=== PATIENT | female | born 1980 | race Caucasian/White ===

== ENCOUNTER 2019-10-25 10:37 | Emergency (ER) | payer SELFPAY ==
[~2019-10-25] VITALS: Ht 155 cm; Wt 60.0 kg
--- NOTE | 2019-10-25 10:40 | ED General ---
General Stated Complaint: SKIN FEELS TINGLY Source of Information: Patient History of Present Illness Date Seen by Provider: October 25, 2019 Time Seen by Provider: 10:39 Initial Comments Patient is a 38-year-old female who comes to the emergency department today complaining of some skin changes. She found a tick on her torso 2 days earlier. She states she pulled it off without difficulty. She then developed some numbness and tingling over the entirety of her body of the skin. She only feels a swelling somebody else is touching her. When there is no contact, her skin feels normal. Her symptoms do not occur in any dermatomal distribution. She has not had a fever or chills. No nausea or vomiting. She does have a history of asthma and bronchitis but she does not report any worsening of the symptoms. No recent viral symptoms. Allergies and Home Medications Allergies Coded Allergies: acetaminophen (Verified Allergy, Unknown, 10/25/19) doxycycline (Verified Allergy, Unknown, 10/25/19) tachycardia, SOA hydrocodone (Verified Allergy, Unknown, 10/25/19) oxycodone (Verified Allergy, Unknown, 10/25/19) povidone-iodine (Verified Allergy, Unknown, 10/25/19) soap (Verified Allergy, Unknown, 10/25/19) Home Medications Albuterol Sulfate 1 Puff Puff, 2 PUFF IH Q4H, (Reported) 1 PUFF = 90 MCG Erythromycin Base 500 Mg Tablet.dr, 500 MG PO QID Prescribed by: ORALIA RODRIGEZ on 10/25/19 1056 Patient Home Medication List Home Medication List Reviewed: Yes Review of Systems Review of Systems Constitutional: no symptoms reported EENTM: no symptoms reported Respiratory: no symptoms reported Cardiovascular: no symptoms reported Musculoskeletal: no symptoms reported Skin: see HPI All Other Systems Reviewed Negative Unless Noted: Yes Physical Exam Vital Signs Vital Signs - First Documented 10/25/19 10:45 Temp 36.2 Pulse 100 Resp 18 B/P (MAP) 132/90 (104) Pulse Ox 96 Capillary Refill : Height, Weight, BMI Height: '" Weight: lbs. oz. kg; BMI Method: General Appearance: No Apparent Distress, WD/WN Neck: Full Range of Motion Respiratory: Lungs Clear, Normal Breath Sounds Cardiovascular: Regular Rate, Rhythm Neurologic/Psychiatric: Alert, Oriented x3 Skin: Other (patient has insect bite along the lateral aspect of the torso over the rib cage. There is a 2 cm area of erythema with central clearing around the actual bite. Does not appear to be acutely cellulitic.) Progress/Results/Core Measures Suspected Sepsis SIRS Temperature: Pulse: Respiratory Rate: Blood Pressure / Mean: Results/Orders Vital Signs/I&O 10/25/19 10:45 Temp 36.2 Pulse 100 Resp 18 B/P (MAP) 132/90 (104) Pulse Ox 96 Capillary Refill : Progress Note : Time: 10:51 Progress Note Patient is seen briefly in the emergency department for a tick bite. She does not have a fever. Her wound does not appear acutely infected. Based on her history of present illness, it does not sound the tick was likely attached for more than 24 hours. Her presenting symptom is vague and only positive for sensitivity of her skin everywhere. Uncertain cause for the symptoms unless she is possibly having some minor immune reaction to tick bite. Her physical exam is otherwise normal. She is allergic to doxycycline. Possibility of tick borne illness is extremely low. Will give patient erythromycin and recommend that begin taking it if she develops any worsening symptoms or fevers. She is also recommended to follow up with primary care doctor for any new or worsening symptoms or the ER. She is overall nontoxic and in no distress. Physical exam of her skin is normal other than documented above. Departure Impression Primary Impression: Tick bite Disposition: 01 HOME, SELF-CARE Condition: Stable Departure-Patient Inst. Scripts Erythromycin Base (Erythromycin) 500 Mg Tablet. 500 MG PO QID for 10 Days, TAB Prov: ORALIA RODRIGEZ DO 10/25/19 ORALIA RODRIGEZ DO October 25, 2019 10:40
[2019-10-25 10:45] VITALS: BP 132/90
[2019-10-25] MEDS ORDERED: DOXY100T2 PO (10:47)
[2019-10-25] MEDS ORDERED: RT-ALBUINH IH (10:51)
[2019-10-25] MEDS ORDERED: IPRA4AER IH (10:51)
[2019-10-25] MEDS ORDERED: ERYT-118 PO (10:56)
== END 2019-10-25 11:10 | disposition home or self-care (01) ==
LOC: EDBD → ER FS 10:40 → MERGE 10:40 → ER FS 11:10
DX: S20.369A Insect bite (nonvenomous) of unspecified front wall of thorax, initial encounter (principal); Z88.6 Allergy status to analgesic agent; Z88.5 Allergy status to narcotic agent; Z88.8 Allergy status to other drugs, medicaments and biological substances; Z88.1 Allergy status to other antibiotic agents; W57.XXXA Bitten or stung by nonvenomous insect and other nonvenomous arthropods, initial encounter
CPT/HCPCS: 99281

== ENCOUNTER 2021-03-21 20:56 | Emergency (ER) | payer SELFPAY ==
[~2021-03-21] VITALS: Ht 154.9 cm; Wt 61.2 kg
[~2021-03-21 20:56] MED LIST: DOXY100T2 PO; ERYT-118 PO; IPRA4AER IH; RT-ALBUINH IH
[2021-03-21] MEDS ORDERED: NS IV 1000 ML 1,000 ML IV SCH (21:45)
[2021-03-21] MEDS ORDERED: RT-ALBUTEROL HFA 8.5 GM INHALER IH STA (21:48)
--- NOTE | 2021-03-21 21:48 | ED GU-Female ---
General Chief Complaint: - Reproductive Stated Complaint: UNABLE TO URINATE Nursing Triage Note: started last having frequency, painful urination and less volume with urination. verbalizes has felt feverish. Source: patient Exam Limitations: no limitations History of Present Illness Date Seen by Provider: Mar 21, 2021 Time Seen by Provider: 21:35 Initial Comments Patient is a 40-year-old female who presents to the emergency department with a chief complaint of inability to urinate. Patient states that her symptoms started a week ago on Saturday. She states she has been "dribbling". She has dysuria and a sense of urgency. Denies any abnormal vaginal discharge. Last bowel movement was yesterday and she describes it as normal. She complains of subjective fevers and chills. She is had nausea and vomiting. She has left- sided back pain. States that she has had similar symptoms in the past with urinary tract infections. Last menstrual cycle was a month ago. She has a history of a tubal ligation. All other review of systems reviewed and negative except as stated. Timing/Duration: week, getting worse Severity/Quality: severe, burning Location: suprapubic Radiation: back Activities at Onset: none Modifying Factors: Improves With Other (Taking "Uristat") Associated Symptoms: abdominal pain, fever/chills (Subjective), lower back pain, nausea/vomiting Allergies and Home Medications Allergies Coded Allergies: acetaminophen (Verified Allergy, Unknown, 10/26/19) doxycycline (Verified Allergy, Unknown, 10/26/19) tachycardia, SOA hydrocodone (Verified Allergy, Unknown, 10/26/19) oxycodone (Verified Allergy, Unknown, 10/26/19) povidone-iodine (Verified Allergy, Unknown, 10/26/19) soap (Verified Allergy, Unknown, 10/26/19) Patient Home Medication List Home Medication List Reviewed: Yes Albuterol Sulfate (Proair Hfa) 1 Puff Puff, 2 PUFF IH Q4H, (Reported) Entered as Reported by: CARMEN RONDON on 10/25/19 1051 Albuterol/Ipratropium (Combivent Respimat Inhal [place]) 4 Gm Aero, 2 PUFF IH, (Reported) Entered as Reported by: CARMEN RONDON on 10/25/19 1051 Erythromycin Base (Erythromycin) 500 Mg Tablet.dr 500 MG PO QID Prescribed by: ORALIA RODRIGEZ on 10/25/19 1056 Review of Systems Review of Systems Constitutional: see HPI EENTM: no symptoms reported Respiratory: short of breath, wheezing Cardiovascular: no symptoms reported Gastrointestinal: abdominal pain Genitourinary: burning, urgency, other (Decreased urinary frequency) Musculoskeletal: back pain Skin: no symptoms reported Psychiatric/Neurological: No Symptoms Reported All Other Systemes Reviewed Negative Unless Noted: Yes Past Cbzogej-Yhfyxi-Hwbejp Hx Past Medical History Surgeries: Yes Tubal Ligation Respiratory: Yes Asthma, Chronic Bronchitis, COPD Cardiac: No Neurological: No Gastrointestinal: No Musculoskeletal: Yes Chronic Back Pain Endocrine: No HEENT: No Cancer: No Psychosocial: Yes Depression Blood Disorders: No Physical Exam Vital Signs Vital Signs - First Documented 03/21/21 21:25 Temp 38.7 Pulse 118 Resp 20 B/P (MAP) 115/74 (88) O2 Delivery Room Air Capillary Refill : Less Than 3 Seconds Height, Weight, BMI Height: '" Weight: lbs. oz. kg; 25.00 BMI Method: General Appearance: WD/WN, no apparent distress HEENT: other (Dry oral mucosa) Neck: normal inspection Cardiovascular: regular rate, rhythm Respiratory: no respiratory distress, no accessory muscle use, wheezing (Diffuse expiratory wheezing in all lung duncan) Gastrointestinal: soft, tenderness (Diffuse mild abdominal tenderness) Back: CVA tenderness (L) Extremities: non-tender, normal inspection, no pedal edema, no calf tenderness Neurologic/Psychiatric: alert, normal mood/affect, oriented x 3 Skin: normal color, warm/dry Progress/Results/Core Measures Suspected Sepsis SIRS Temperature: Pulse: 118 Respiratory Rate: 20 Laboratory Tests 03/21/21 21:45: White Blood Count 16.0H Blood Pressure 115 /74 Mean: 88 Laboratory Tests 03/21/21 21:45: Creatinine 0.87, Platelet Count 306 Results/Orders Lab Results Laboratory Tests Test 03/21/21 21:45 03/21/21 23:47 Range/Units White Blood Count 16.0 H 4.3-11.0 10^3/uL Red Blood Count 4.85 3.80-5.11 10^6/uL Hemoglobin 15.2 11.5-16.0 g/dL Hematocrit 45 35-52 % Mean Corpuscular Volume 92 80-99 fL Mean Corpuscular Hemoglobin 31 25-34 pg Mean Corpuscular Hemoglobin Concent 34 32-36 g/dL Red Cell Distribution Width 11.7 10.0-14.5 % Platelet Count 306 130-400 10^3/uL Mean Platelet Volume 9.5 9.0-12.2 fL Immature Granulocyte % (Auto) 1 % Neutrophils (%) (Auto) 85 H 42-75 % Lymphocytes (%) (Auto) 7 L 12-44 % Monocytes (%) (Auto) 8 0-12 % Eosinophils (%) (Auto) 0 0-10 % Basophils (%) (Auto) 0 0-10 % Neutrophils # (Auto) 13.5 H 1.8-7.8 10^3/uL Lymphocytes # (Auto) 1.1 1.0-4.0 10^3/uL Monocytes # (Auto) 1.2 H 0.0-1.0 10^3/uL Eosinophils # (Auto) 0.0 0.0-0.3 10^3/uL Basophils # (Auto) 0.0 0.0-0.1 10^3/uL Immature Granulocyte # (Auto) 0.1 0.0-0.1 10^3/uL Neutrophils % (Manual) 83 % Lymphocytes % (Manual) 7 % Monocytes % (Manual) 6 % Atypical Lymphocytes 4 % Toxic Granulation 1+ Microcytosis SLIGHT Sodium Level 130 L 135-145 MMOL/L Potassium Level 4.5 3.6-5.0 MMOL/L Chloride Level 95 L 98-107 MMOL/L Carbon Dioxide Level 23 21-32 MMOL/L Anion Gap 12 5-14 MMOL/L Blood Urea Nitrogen 6 L 7-18 MG/DL Creatinine 0.87 0.60-1.30 MG/DL Estimat Glomerular Filtration Rate 72 BUN/Creatinine Ratio 7 Glucose Level 119 H 70-105 MG/DL Calcium Level 10.0 8.5-10.1 MG/DL Urine Color ORANGE Urine Clarity CLOUDY Urine pH 6.0 5-9 Urine Specific [place] 1.015 L 1.016-1.022 Urine Protein 2+ H NEGATIVE Urine Glucose (UA) NEGATIVE NEGATIVE Urine Ketones NEGATIVE NEGATIVE Urine Nitrite POSITIVE H NEGATIVE Urine Bilirubin NEGATIVE NEGATIVE Urine Urobilinogen 1.0 < = 1.0 MG/DL Urine Leukocyte Esterase 3+ H NEGATIVE Urine RBC (Auto) 3+ H NEGATIVE Urine RBC 2-5 H /HPF Urine WBC TNTC H /HPF Urine Crystals NONE /LPF Urine Bacteria LARGE H /HPF Urine Casts NONE /LPF Urine Mucus NEGATIVE /LPF Urine Culture Indicated YES My Orders Orders - MARK SENIOR MD Ed Iv/Invasive Line Start (03/21/21 21:44) Cbc With Automated Diff (03/21/21 21:44) Basic Metabolic Panel (03/21/21 21:44) Urine Bedside (03/21/21 21:44) Ns Iv 1000 Ml (Sodium Chloride 0.9%) (03/21/21 21:45) Ua Culture If Indicated (03/21/21 21:44) Albuterol Inhaler (Albuterol) (03/21/21 21:48) Manual Differential (03/21/21 21:45) Ketorolac Injection (Toradol Injection) (03/21/21 22:30) Urine Culture (03/21/21 23:47) Ceftriaxone (Rocephin) (03/22/21 00:30) Medications Given in ED Current Medications Medications Dose Ordered Sig/Jesus Route Start Time Stop Time Status Last Admin Dose Admin Ceftriaxone Sodium 1000 mg/ Sterile Water 10 ml @ 200 mls/hr ONCE ONCE IV 03/22/21 00:30 03/22/21 00:32 DC 03/22/21 00:28 200 MLS/HR Ketorolac Tromethamine 15 mg ONCE ONCE IVP 03/21/21 22:30 03/21/21 22:31 DC 03/21/21 22:28 15 MG Vital Signs/I&O 03/21/21 21:25 Temp 38.7 Pulse 118 Resp 20 B/P (MAP) 115/74 (88) O2 Delivery Room Air 03/22/21 00:00 Intake Total 1000 ml Balance 1000 ml Capillary Refill : Less Than 3 Seconds Blood Pressure Mean: 88 Progress Note : Time: 00:33 Progress Note Patient noted to have fairly significant urinary tract infection on urinalysis. Renal function and electrolytes are normal. She has a leukocytosis of 16,000. Patient's vital signs are stable. No clinical or objective findings to warrant further testing from the emergency department. Patient is treated with 15 mg of Toradol, 1 g of Rocephin and 1 L of IV fluids here in the department. She will be sent home with a prescription of Bactrim for 5 days. Zofran for nausea encouraged to drink lots of fluids, Tylenol and ibuprofen for pain. Return precautions given. All questions are sought and answered. Patient is stable for discharge. Departure Impression Primary Impression: Urinary tract infection Qualified Codes: N39.0 - Urinary tract infection, site not specified Disposition: 01 HOME, SELF-CARE Condition: Stable Departure-Patient Inst. Decision time for Depature: 00:34 Referrals: [facility] [place] Patient Instructions: Urinary Tract Infection, Adult (DC) Add. Discharge Instructions: Drink lots of fluids to stay well-hydrated. Continue to Take [id number] Pyridium/Azo 3 times daily for bladder spasm/pain. You can also take Tylenol/ibuprofen as needed for pain. I have sent a prescription for Bactrim, antibiotic, to be taken 1 twice daily for 5 days. Also Zofran, 1 every 8 hours as needed for nausea. If you develop fever over 101 with worsening pain, vomiting or other emergent concerning symptoms please come back to the emergency room for further evaluation and management. Please follow-up with a primary care physician. Scripts Sulfamethoxazole/Trimethoprim (Bactrim Ds Tablet) 1 Each Tablet 1 EACH PO BID for 5 Days, #10 TAB Prov: MARK SENIOR MD 03/22/21 Ondansetron (Ondansetron Odt) 4 Mg Tab.rapdis 4 MG PO Q8H PRN for nausea, #12 TAB Prov: MARK SENIOR MD 03/22/21 MARK SENIOR MD Mar 21, 2021 21:48
[2021-03-21 21:55] LABS: BASOPHILS % (AUTO) 0 % (0-10); EOSINOPHILS % (AUTO) 0 % (0-10); HEMATOCRIT 45 % (35-52); HEMOGLOBIN 15.2 g/dL (11.5-16.0); LYMPHOCYTES # (AUTO) 1.1 10^3/uL (1.0-4.0); LYMPHOCYTES % (AUTO) 7 % (12-44); MEAN CORPUSCULAR HEMOGLOBIN 31 pg (25-34); MEAN CORPUSCULAR HGB CONC 34 g/dL (32-36); MEAN CORPUSCULAR VOLUME 92 fL (80-99); MEAN PLATELET VOLUME 9.5 fL (9.0-12.2); MONOCYTES # (AUTO) 1.2 10^3/uL (0.0-1.0); MONOCYTES % (AUTO) 8 % (0-12); NEUTROPHILS # (AUTO) 13.5 10^3/uL (1.8-7.8); NEUTROPHILS % (AUTO) 85 % (42-75); PLATELET COUNT 306 10^3/uL (130-400)
[2021-03-21 22:02] LABS: POTASSIUM 4.5 MMOL/L (3.6-5.0)
[2021-03-21 22:08] LABS: CREATININE SERUM 0.87 MG/DL (0.60-1.30)
[2021-03-21 22:16] LABS: LYMPHOCYTES % (MANUAL) 7 %; MONOCYTES % (MANUAL) 6 %; NEUTROPHILS % (MANUAL) 83 %
[2021-03-21 22:17] LABS: ATYPICAL LYMPHOCYTES 4 %; MICROCYTOSIS SLIGHT; TOXIC GRANULATION/VACUOLAZATIO 1+
[2021-03-21] MEDS ORDERED: KETOROLAC 30 MG/ML VIAL IVP ONE (22:30)
[2021-03-21 23:59] LABS: BILIRUBIN,URINE NEGATIVE (NEGATIVE); CLARITY,URINE CLOUDY; COLOR,URINE ORANGE; GLUCOSE, URINE (UA) NEGATIVE (NEGATIVE); KETONES,URINE NEGATIVE (NEGATIVE); LEUKOCYTE ESTERASE ,URINE 3+ (NEGATIVE); NITRITE,URINE POSITIVE (NEGATIVE); PROTEIN,URINE 2+ (NEGATIVE)
[2021-03-22 00:10] LABS: BACTERIA,URINE LARGE /HPF; WBC,URINE TNTC /HPF
[2021-03-22] MEDS ORDERED: cefTRIAXone 1,000 MG in WATER (STERILE) FOR INJECTION 10 ML IV ONE (00:30)
[2021-03-22] MEDS ORDERED: SULF1TAB38 PO (00:38)
[2021-03-22] MEDS ORDERED: ONDA4TAB11 PO (00:38)
[2021-03-22 01:25] VITALS: BP 123/79
== END 2021-03-22 01:25 | disposition home or self-care (01) ==
LOC: EDUNIT# 20:56 → ER 20:59
DX: N39.0 Urinary tract infection, site not specified (principal); J44.9 Chronic obstructive pulmonary disease, unspecified
CPT/HCPCS: 36415; 80048; 81000; 84703; 85007; 85027; 87077; 87088; 87186

== ENCOUNTER 2021-11-12 02:15 | Emergency (ER) | payer SELFPAY ==
[~2021-11-12] VITALS: Ht 162 cm; Wt 63.5 kg
[~2021-11-12 02:15] MED LIST changes: +ONDA4TAB11 PO; +SULF1TAB38 PO
[2021-11-12 02:30] VITALS: BP 118/79
[2021-11-12] MEDS ORDERED: ALBUTEROL/IPRATROP (COMBIVENT RESPIMAT) 4 GM INHALER IH STA (02:58)
[2021-11-12] MEDS ORDERED: methylPREDNISolone 125 MG (Solu-MEDROL) VIAL IVP ONE (03:00)
[2021-11-12] MEDS ORDERED: NS IV 1000 ML 1,000 ML IV SCH (03:00)
[2021-11-12] MEDS ORDERED: KETOROLAC 30 MG/ML VIAL IVP ONE (03:00)
--- NOTE | 2021-11-12 03:03 | ED Cough/URI ---
General Chief Complaint: Respiratory Problems Stated Complaint: TROUBLE BREATHING,COUGH,BODY ACHES,CHILLS Source: patient Exam Limitations: no limitations History of Present Illness Date Seen by Provider: November 12, 2021 Time Seen by Provider: 02:52 Initial Comments Patient is a 40-year-old female history of smoking presents to the emergency department today with a chief complaint of subjective fevers, chills, body aches, headache, productive cough and shortness of breath. Onset of symptoms in the last 24 to 48 hours while she has been at work at "[employer]". Patient states that she has been cutting back on her smoking recently. She has been out of her albuterol inhalers. She is coughing up sputum. Complains of congestion. Is not taking any skac-[id number]-tnvokwz medications for her symptoms. Denies nausea, vomiting, diarrhea. Denies urinary complaints. No sick contacts that she is aware of. Is not COVID vaccinated. Nothing makes her symptoms any better, coughing hurts her chest. All other review of systems reviewed and negative except as stated. Timing/Duration: yesterday Severity/Quality: productive cough Prior Episodes/Possible Cause: occasional episodes Modifying Factors: Worse With Coughing Associated Symptoms: chest pain/soreness, cough, fever/chills, headache, muscle aches, nasal congestion, shortness of breath, wheezing Allergies and Home Medications Allergies Coded Allergies: acetaminophen (Verified Allergy, Unknown, 10/26/19) doxycycline (Verified Allergy, Unknown, 10/26/19) tachycardia, SOA hydrocodone (Verified Allergy, Unknown, 10/26/19) oxycodone (Verified Allergy, Unknown, 10/26/19) povidone-iodine (Verified Allergy, Unknown, 10/26/19) soap (Verified Allergy, Unknown, 10/26/19) Patient Home Medication List Home Medication List Reviewed: Yes Albuterol Sulfate (Proair Hfa) 1 Puff Puff, 2 PUFF IH Q4H, (Reported) Entered as Reported by: CARMEN RONDON on 10/25/19 1051 Albuterol/Ipratropium (Combivent Respimat Inhal [place]) 4 Gm Aero, 2 PUFF IH, (Reported) Entered as Reported by: CARMEN RONDON on 10/25/19 1051 Azithromycin (Azithromycin) 250 Mg Tablet, 250 MG PO DAILY Prescribed by: MARK SENIOR on 11/12/21420 Erythromycin Base (Erythromycin) 500 Mg Tablet.dr, 500 MG PO QID Prescribed by: ORALIA RODRIGEZ on 10/25/19 1056 Guaifenesin/Codeine (Robitussin Ac (Codeine) Syrup) 10 Ml Syrp, 10 ML PO Q8H PRN for cough Prescribed by: MARK SENIOR on 11/12/21420 Ondansetron (Ondansetron Odt) 4 Mg Tab.rapdis, 4 MG PO Q8H PRN for nausea Prescribed by: MARK SENIOR on 03/22/2137 Prednisone (Prednisone) 10 Mg Tab.ds.pk, 10 MG PO DAILY Prescribed by: MARK SENIOR on 11/12/21420 Sulfamethoxazole/Trimethoprim (Bactrim Ds Tablet) 1 Each Tablet, 1 EACH PO BID Prescribed by: MARK SENIOR on 03/22/2137 Review of Systems Review of Systems Constitutional: see HPI EENTM: nose congestion Respiratory: cough, phlegm, short of breath Cardiovascular: chest pain (soreness) Gastrointestinal: no symptoms reported Genitourinary: no symptoms reported Musculoskeletal: muscle pain (body aches) Skin: no symptoms reported Psychiatric/Neurological: Headache Past Bumdgmp-Lplqbp-Naqaco Hx Past Medical History Surgeries: Yes Tubal Ligation Respiratory: Yes Asthma, Chronic Bronchitis, COPD Cardiac: No Neurological: No Gastrointestinal: No Musculoskeletal: Yes Chronic Back Pain Endocrine: No HEENT: No Cancer: No Psychosocial: Yes Depression Blood Disorders: No Physical Exam Vital Signs - First Documented 11/12/21 02:30 Temp 37.2 Pulse 96 Resp 24 B/P (MAP) 118/79 (92) Pulse Ox 96 O2 Delivery Room Air Capillary Refill : Height: '" Weight: lbs. oz. kg; 25.00 BMI Method: General Appearance: no apparent distress, thin Eyes: Bilateral Eye Normal Inspection, Bilateral Eye PERRL, Bilateral Eye EOMI HEENT: pharynx normal, other (dry mucous membranes) Neck: full range of motion, supple Respiratory: wheezing (diffuse) Cardiovascular: regular rate, rhythm Gastrointestinal: non tender, soft Extremities: normal range of motion, non-tender, normal inspection, no pedal edema, no calf tenderness, normal capillary refill Neurologic/Psychiatric: no motor/sensory deficits, alert, normal mood/affect, oriented x 3 Skin: normal color, warm/dry Progress/Results/Core Measures Suspected Sepsis SIRS Temperature: Pulse: Respiratory Rate: Blood Pressure / Mean: Results/Orders Lab Results Laboratory Tests Test 11/12/21 02:35 Range/Units Influenza Type A (RT-PCR) Not Detected Not Detecte Influenza Type B (RT-PCR) Not Detected Not Detecte SARS-CoV-2 RNA (RT-PCR) Not Detected Not Detecte My Orders Orders - MARK SENIOR MD Covid 19 Inhouse Test (11/12/21 02:44) Influenza A And B By Pcr (11/12/21 02:44) Isolation Central Supply Req (11/12/21 02:44) Ns Iv 1000 Ml (Sodium Chloride 0.9%) (11/12/21 03:00) Ketorolac Injection (Toradol Injection) (11/12/21 03:00) Methylprednisolone Sod Succ (Solu-Medrol (11/12/21 03:00) Chest 1 View, Ap/Pa Only (11/12/21 02:58) Albuterol/Ipratropium Inhaler (Combivent (11/12/21 02:58) Rt Request For Service (11/12/21 02:58) Albuterol/Ipra Inhalation Soln (Duoneb I (11/12/21 03:15) Svn Small Volume Nebulizer (11/12/21 03:12) Azithromycin Tablet (Zithromax Tablet) (11/12/21 04:30) Rx-Albuterol Inhaler (Rx-Ventolin Hfa In (11/12/21 04:22) Medications Given in ED Current Medications Medications Dose Ordered Sig/Jesus Route Start Time Stop Time Status Last Admin Dose Admin Albuterol/ Ipratropium 3 ml ONCE ONCE INH 11/12/21 03:15 11/12/21 03:16 DC 11/12/21 03:36 3 ML Vital Signs/I&O 11/12/21 11/12/21 02:30 03:37 Temp 37.2 Pulse 96 Resp 24 B/P (MAP) 118/79 (92) Pulse Ox 96 94 O2 Delivery Room Air Room Air Capillary Refill : Progress Note : Time: 04:15 Progress Note feeling better after breathing treatment. wheezing is improved, not gone - but she feels better. She would like to be discharged. will send home on abx, cough meds and with an albuterol inhaler. return precautions discussed. smoking cessation encouraged. Departure Impression Primary Impression: COPD (chronic obstructive pulmonary disease) with acute bronchitis Disposition: HOME, SELF-CARE Condition: Improved Departure-Patient Inst. Decision time for Depature: 04:16 Referrals: [facility] [place] [facility],LOCAL PHYSICIAN (PCP) Primary Care Physician Patient Instructions: Acute Bronchitis, Adult (DC) Add. Discharge Instructions: You really need to try and stop smoking. Take the steroids as directed over the course of the next week. Albuterol inhaler 2 puffs every 4-6 hours as needed for shortness of breath. Antibiotics for 5 days, your first dose has been given this morning. You will need to take 1 pill a day for the next 4 days after today, Saturday. Cough medication as needed. This is a prescription cough medicine with codeine. Please be careful taking it do not drive and take it. Return to the emergency department for any new, concerning or worsening symptom s. Scripts Azithromycin (Azithromycin) 250 Mg Tablet 250 MG PO DAILY, #4 TAB 0 Refills Prov: MARK SENIOR MD 11/12/21 Guaifenesin/Codeine (ROBITUSSIN AC (CODEINE) [place]) 10 Ml Syrp 10 ML PO Q8H PRN for cough, #120 ML Prov: MARK SENIOR MD 11/12/21 Prednisone (Prednisone) 10 Mg Tab.ds.pk 10 MG PO DAILY, #21 EA Take 6 tabs(60mg)daily,decrease by 1 tab(10MG)daily. Prov: MARK SENIOR MD 11/12/21 Work/School Note: Work Release Form Date Seen in the Emergency Department: November 11, 2021 Return to Work: November 14, 2021 Copy Copies To 1: CARLIN SHAFFER KATHRYN M MD November 12, 2021 03:03
[2021-11-12] MEDS ORDERED: RT-ALBUTEROL/IPRATROPIUM 3 ML (DUONEB) VIAL INH ONE (03:15)
[2021-11-12] MEDS ORDERED: AZIT250T12 PO (04:21)
[2021-11-12] MEDS ORDERED: PRED10TA22 PO (04:21)
[2021-11-12] MEDS ORDERED: GFCD10B PO (04:21)
[2021-11-12] MEDS ORDERED: RX-ALBUTEROL INHALER 8.5 GM HFA (PROAIR) IH STA (04:22)
[2021-11-12] MEDS ORDERED: AZITHROMYCIN 250 MG TAB (ZITHROMAX) PO ONE (04:30)
--- NOTE | 2021-11-12 07:08 | Diagnostic Imaging Report ---
EXAMINATION: Chest radiograph, portable AP view. DATE: 11/12/2021 3:29 AM INDICATION: 40-year-old female, shortness breath and cough COMPARISON: None FINDINGS: Heart size and mediastinal contours are unremarkable. There is no identified pneumothorax. There is no large pleural effusion. There is no identified focal airspace consolidation. IMPRESSION: No identified acute cardiopulmonary abnormality. Dictated by: Dictated on workstation # [id number]
== END 2021-11-12 04:50 | disposition home or self-care (01) ==
LOC: EDUNIT# 02:15 → ER 02:18
DX: J44.0 Chronic obstructive pulmonary disease with (acute) lower respiratory infection (principal); J20.9 Acute bronchitis, unspecified; F17.200 Nicotine dependence, unspecified, uncomplicated; Z79.899 Other long term (current) drug therapy; Z20.822 Contact with and (suspected) exposure to COVID-19; Z28.310 Unvaccinated for COVID-19
CPT/HCPCS: 71045; 87636; 94640

== ENCOUNTER 2022-01-13 23:19 | Emergency (ER) | payer SELFPAY ==
[~2022-01-13] VITALS: Ht 155 cm; Wt 59.0 kg
[~2022-01-13 23:19] MED LIST changes: +AZIT250T12 PO; +GFCD10B PO; +PRED10TA22 PO
[2022-01-13] MEDS ORDERED: RX-ALBUTEROL INHALER 8.5 GM HFA (PROAIR) IH STA (23:32)
--- NOTE | 2022-01-13 23:32 | ED Respiratory ---
General Chief Complaint: Respiratory Problems Stated Complaint: TROUBLE BREATHING,HOT/COLD FLASHES,COPD Source: patient Exam Limitations: no limitations History of Present Illness Date Seen by Provider: Jan 13, 2022 Time Seen by Provider: 23:25 Initial Comments Patient is a 41-year-old female who presents to the emergency department today with a chief complaint of shortness of breath and wheezing. Patient states that she is out of her medications. She normally uses albuterol inhalers as well as in her nebulizer. She has been out for about 2 weeks. Over the last week she has had increasing work of breathing and tonight it got significantly more difficult. She has had productive cough, green sputum. She still smokes cigarettes. She feels "hot and cold". No measured fever. Slight runny nose. No earache or sore throat. No headache currently. No nausea, vomiting, diarrhea. No complaints. No swelling in her legs or cramping in her calves. She does not take any other medications other than for breathing. She had COVID 1 month ago. She is not vaccinated. All other review of systems reviewed and negative except as stated Timing/Duration: week, getting worse Severity: moderate Prior Episodes/Possible Cause: frequent episodes Modifying Factors: Improves With Albuterol Inhaler, Improves With Albuterol Nebulizer Associated Symptoms: cough, nasal congestion, shortness of breath, wheezing Allergies and Home Medications Allergies Coded Allergies: acetaminophen (Verified Allergy, Unknown, 10/26/19) doxycycline (Verified Allergy, Unknown, 10/26/19) tachycardia, SOA hydrocodone (Verified Allergy, Unknown, 10/26/19) oxycodone (Verified Allergy, Unknown, 10/26/19) povidone-iodine (Verified Allergy, Unknown, 10/26/19) soap (Verified Allergy, Unknown, 10/26/19) Patient Home Medication List Home Medication List Reviewed: Yes Albuterol Sulfate (Proair Hfa) 1 Puff Puff, 2 PUFF IH Q4H, (Reported) Entered as Reported by: CARMEN RONDON on 10/25/19 1051 Last Action: Last Taken Edited Albuterol/Ipratropium (Combivent Respimat Inhal [place]) 4 Gm Aero, 2 PUFF IH, (Reported) Entered as Reported by: CARMEN RONDON on 10/25/19 1051 Last Action: Last Taken Edited Discontinued Medications Azithromycin (Azithromycin) 250 Mg Tablet, 250 MG PO DAILY Discontinued Reason: Duplicate Order Prescribed by: MARK SENIOR on 11/12/21420 Last Action: Discontinued Erythromycin Base (Erythromycin) 500 Mg Tablet.dr, 500 MG PO QID Discontinued Reason: Duplicate Order Prescribed by: ORALIA RODRIGEZ on 10/25/19 1056 Last Action: Discontinued Guaifenesin/Codeine (Robitussin Ac (Codeine) Syrup) 10 Ml Syrp, 10 ML PO Q8H PRN for cough Discontinued Reason: Duplicate Order Prescribed by: MARK SENIOR on 11/12/21420 Last Action: Discontinued Ondansetron (Ondansetron Odt) 4 Mg Tab.rapdis, 4 MG PO Q8H PRN for nausea Discontinued Reason: Duplicate Order Prescribed by: MARK SENIOR on 03/22/2137 Last Action: Discontinued Prednisone (Prednisone) 10 Mg Tab.ds.pk, 10 MG PO DAILY Discontinued Reason: Duplicate Order Prescribed by: MARK SENIOR on 11/12/21420 Last Action: Discontinued Sulfamethoxazole/Trimethoprim (Bactrim Ds Tablet) 1 Each Tablet, 1 EACH PO BID Discontinued Reason: Duplicate Order Prescribed by: MARK SENIOR on 03/22/2137 Last Action: Discontinued Review of Systems Review of Systems Constitutional: see HPI EENTM: nose congestion Respiratory: cough, short of breath, wheezing Cardiovascular: no symptoms reported Gastrointestinal: no symptoms reported Genitourinary: no symptoms reported Musculoskeletal: no symptoms reported Skin: no symptoms reported Psychiatric/Neurological: Headache (intermittent) All Other Systems Reviewed Negative Unless Noted: Yes Past Nequuaj-Cubefh-Hfpzgc Hx Patient Social History Tobacco Use?: Yes Substance use?: No Alcohol Use?: No Pt feels they are or have been: No Past Medical History Surgery/Hospitalization HX: t/a, tubal, copd Surgeries: Yes Tubal Ligation Respiratory: Yes Asthma, Chronic Bronchitis, COPD Cardiac: No Neurological: No Gastrointestinal: No Musculoskeletal: Yes Chronic Back Pain Endocrine: No HEENT: No Cancer: No Psychosocial: Yes Depression Blood Disorders: No Physical Exam Vital Signs - First Documented 01/13/22 23:24 Temp 36.5 Pulse 115 Resp 18 B/P (MAP) 125/95 (105) Pulse Ox 97 O2 Delivery Room Air Capillary Refill : Height: '" Weight: lbs. oz. kg; 24.00 BMI Method: General Appearance: WD/WN, moderate distress Eyes: Bilateral Eye Normal Inspection, Bilateral Eye PERRL, Bilateral Eye EOMI HEENT: PERRL/EOMI, pharynx normal Neck: full range of motion, supple Respiratory: accessory muscle use, wheezing, expiration Cardiovascular: regular rate, rhythm, tachycardia (120) Extremities: non-tender, normal inspection, no pedal edema, no calf tenderness, normal capillary refill Neurologic/Psychiatric: alert, normal mood/affect, oriented x 3 Skin: normal color, warm/dry Progress/Results/Core Measures Suspected Sepsis SIRS Temperature: Pulse: Respiratory Rate: Blood Pressure / Mean: Results/Orders My Orders Orders - MARK SENIOR MD Communication For Respiratory (01/13/22 23:32) Albuterol Pre-Mix Nebs (Rt) (Proventil (01/13/22 23:45) Ipratropium 0.02% Neb Solution (Atrovent (01/13/22 23:45) Svn Small Volume Nebulizer (01/13/22 23:32) Svn Small Volume Nebulizer (01/13/22 23:32) Azithromycin Tablet (Zithromax Tablet) (01/13/22 23:45) Prednisone Tablet (Deltasone Tablet) (01/13/22 23:45) Rx-Albuterol Inhaler (Rx-Ventolin Hfa In (01/13/22 23:32) Medications Given in ED Current Medications Medications Dose Ordered Sig/Jesus Route Start Time Stop Time Status Last Admin Dose Admin Albuterol Sulfate 2.5 mg ONCE ONCE INH 01/13/22 23:45 01/13/22 23:46 DC 01/13/22 23:40 2.5 MG Azithromycin 500 mg ONCE ONCE PO 01/13/22 23:45 01/13/22 23:46 DC 01/13/22 23:40 500 MG Ipratropium [place] 0.5 mg ONCE ONCE IH 01/13/22 23:45 01/13/22 23:46 DC 01/13/22 23:40 0.5 MG Prednisone 50 mg ONCE ONCE PO 01/13/22 23:45 01/13/22 23:46 DC 01/13/22 23:40 50 MG Vital Signs/I&O 01/13/22 23:24 Temp 36.5 Pulse 115 Resp 18 B/P (MAP) 125/95 (105) Pulse Ox 97 O2 Delivery Room Air Capillary Refill : Progress Note : Time: 00:11 Progress Note Patient reexamined once her breathing treatment was complete, she is feeling much better work of breathing is much improved. No wheezing is auscultated. Room air sats 95 to 96%. Heart rate is still in the 1 10-1 20 range. I advised her that I would be giving her 2 more days of antibiotics as well as refilling her albuterol solution. She was provided an inhaler. Return precautions were given. All questions are sought and answered. Counseling-Symptomatic: 3-10 Minutes Follow-up with PCP to: Discuss Further Options Departure Impression Primary Impression: Acute exacerbation of chronic obstructive pulmonary disease (COPD) Disposition: 01 HOME, SELF-CARE Condition: Improved Departure-Patient Inst. Decision time for Depature: 00:11 Referrals: [facility]/MELISSA NICHOLAS,LOCAL PHYSICIAN (PCP) Primary Care Physician Patient Instructions: COPD Exacerbation, Adult ED Add. Discharge Instructions: You really need to try and stop smoking. Use the albuterol inhaler 2 puffs every 4 hours as needed for shortness of breath. You can use your albuterol nebulizer every 6 hours when at home. Take the prednisone 1 tab daily starting tomorrow night for 4 days. Azithromycin 2 pills, 500 mg tomorrow and Saturday. If you develop a fever, worsening shortness of breath or cough or any other emergent concerning symptoms please come back to the emergency room for reevaluation. Follow-up with [facility] for further management of your lung issues. There may be other potentially helpful inhalers that will prevent you from getting this bad again. Scripts Albuterol Sulfate (Albuterol Sulfate) 2.5 Mg/3 Ml (0.083 %) Vial.neb 2.5 MG INH Q4H PRN for WHEEZING, #50 EA 1 Refill Prov: MARK SENIOR MD 01/14/22 Azithromycin (Azithromycin) 250 Mg Tablet 500 MG PO DAILY, #4 TAB 0 Refills Prov: MARK SENIOR MD 01/14/22 Prednisone (Prednisone) 50 Mg Tab 50 MG PO DAILY, #4 TAB Prov: MARK SENIOR MD 01/14/22 Work/School Note: Work Release Form Date Seen in the Emergency Department: Jan 13, 2022 Return to Work: Jan 15, 2022 MARK SENIOR MD Jan 13, 2022 23:32
[2022-01-13] MEDS ORDERED: RT-IPRATROPIUM (ATROVENT) 0.5MG/2.5ML AMP IH ONE (23:45)
[2022-01-13] MEDS ORDERED: RT-ALBUTEROL SULF 2.5 MG/3 ML PRE-MIX VIAL INH ONE (23:45)
[2022-01-13] MEDS ORDERED: predniSONE 20 MG TAB PO ONE (23:45)
[2022-01-13] MEDS ORDERED: AZITHROMYCIN 250 MG TAB (ZITHROMAX) PO ONE (23:45)
[2022-01-14] MEDS ORDERED: AZIT250T12 PO (00:13)
[2022-01-14] MEDS ORDERED: PRD50T PO (00:13)
[2022-01-14] MEDS ORDERED: ALBU2.5V4 INH (00:13)
[2022-01-14 00:31] VITALS: BP 122/74
== END 2022-01-14 00:33 | disposition home or self-care (01) ==
LOC: EDUNIT# 23:19 → ER 23:21
DX: J44.1 Chronic obstructive pulmonary disease with (acute) exacerbation (principal); F17.210 Nicotine dependence, cigarettes, uncomplicated; Z86.16 Personal history of COVID-19; Z28.310 Unvaccinated for COVID-19
CPT/HCPCS: 99283